=== PATIENT | female | born 1990 | race Caucasian/White ===

== ENCOUNTER 2016-10-09 15:11 | Emergency (ER) | payer OTHER ==
[~2016-10-09] VITALS: Wt 65.0 kg
[~2016-10-09 15:11] MED LIST: FERR-55 PO; PREN-39 PO
[2016-10-09 16:48] LABS: URINE BLOOD (Dip) POC 1+ (NEGATIVE)
[2016-10-09] MEDS ORDERED: NAPR-688 PO (17:51)
[2016-10-09] MEDS ORDERED: PHEN-537 PO (17:51)
[2016-10-09] MEDS ORDERED: NITR-58 PO (17:51)
[2016-10-09] MEDS ORDERED: CIPR500T4 PO (17:51)
--- NOTE | 2016-10-09 18:00 | ERD ---
ER Documentation Chief Complaint Date/Time DATE: 10/09/16 TIME: 17:54 Chief Complaint DYSURIA SINCE SUNDAY HPI This 26-year-old female presents to the ER with burning on urination for the last 4 days. More recently she started having pain in her right flank. She denies fevers and chills. She does not feel lightheaded. Flank pain is a dull ache. She has had urinary tract infections in the past. Also has mild suprapubic pain. ROS All systems reviewed and are negative except as per history of present illness. Medications Home Meds Active Scripts Naproxen* (Naproxen*) 500 Mg Tablet, 500 MG PO BID Y for PAIN, #20 TAB Prov:LISA DE OLIVEIRA DO 10/09/16 Phenazopyridine Hcl* (Pyridium*) 100 Mg Tab, 100 MG PO TID Y for URINARY PAIN, # 8 TAB Prov:LISA DE OLIVEIRA DO 10/09/16 Nitrofurantoin Monohyd Macrocr* (Macrobid*) 100 Mg Capsr, 100 MG PO HS for 10 Days, CAP Prov:LISA DE OLIVEIRA DO 10/09/16 Ciprofloxacin Hcl* (Ciprofloxacin Hcl*) 500 Mg Tablet, 500 MG PO BID for 10 Days , TAB Prov:LISA DE OLIVEIRA DO 10/09/16 Reported Medications Ferrous Sulfate* (Ferrous Sulfate*) 325 Mg Tablet, 325 MG PO DAILY 07/30/13 Vits W-Ca,Fe,Fa(<1MG) ( Vitamins) 1 Tab Tablet, 1 TAB PO DAILY 07/30/13 Allergies Allergies: Coded Allergies: No Known Allergy (Unverified , 04/16/15) PMhx/Soc Medical and Surgical Hx: pt denies Medical Hx, pt denies Surgical Hx History of Surgery: No Anesthesia Reaction: No Hx Neurological Disorder: No Hx Respiratory Disorders: No Hx Cardiac Disorders: No Hx Psychiatric Problems: No Hx Miscellaneous Medical Probl: No Hx Alcohol Use: No Hx Substance Use: No Hx Tobacco Use: No Smoking Status: Never smoker Physical Exam Vitals Vital Signs Date Time Temp Pulse Resp B/P Pulse Ox O2 Delivery O2 Flow Rate FiO2 10/09/16 15:14 98.2 71 18 129/71 99 Physical Exam Const: [] Mild distress, Neck: Full range of motion..~ No meningismus. Resp: Clear to auscultation bilaterally Abd: Soft, non tender, non distended. Normal bowel sounds Skin: No petechiae or rashes Back: No midline or flank tenderness Results 24 hrs Laboratory Tests Test 10/09/16 16:51 Bedside Urine pH (LAB) 6.0 Bedside Urine Protein (LAB) Negative Bedside Urine Glucose (UA) Negative Bedside Urine Ketones (LAB) Negative Bedside Urine Blood 1+ Bedside Urine Nitrite (LAB) Positive Bedside Urine Leukocyte Esterase (L 1+ Procedures/MDM Pyelonephritis with stable vital signs, no nausea or vomiting and does not feel lightheaded. I believe she is appropriate for outpatient management of pyelonephritis. Discharging with Cipro and Macrobid for 10 days as well as Pyridium and naproxen. Departure Diagnosis: Primary Impression: Pyelonephritis Condition: Stable Patient Instructions: Pyelonephritis, Female (Adult) Additional Instructions: Llame al doctor MAANA y jaelyn honey GLENIS PARA DENTRO DE 2-3 MABRY.Dgale a la secretaria que nosotros le instruimos hacer esta glenis.Avise o llame si terrazas condicin se empeora antes de la glenis. Regresa aqui si peor o no mejor. LISA DE OLIVEIRA DO Oct 09, 2016 18:00
== END 2016-10-09 18:08 | disposition home or self-care (01) ==
LOC: FTE 15:11
DX: N12 Tubulo-interstitial nephritis, not specified as acute or chronic (principal)
CPT/HCPCS: 81003; 99284

== ENCOUNTER 2016-10-26 16:50 | Emergency (ER) | payer OTHER ==
[~2016-10-26] VITALS: Ht 152.4 cm; Wt 66.5 kg
[~2016-10-26 16:50] MED LIST changes: +CIPR500T4 PO; +NAPR-688 PO; +NITR-58 PO; +PHEN-537 PO
[2016-10-26 17:04] VITALS: Ht 152.4 cm; Wt 66.5 kg
--- NOTE | 2016-10-26 18:08 | RADRPT ---
PROCEDURE: XR, Chest. CLINICAL INDICATION: Cough. TECHNIQUE: AP chest COMPARISON: None available. FINDINGS: There is no acute infiltrate in the lungs. No pleural effusion. The heart is not enlarged. IMPRESSION: 1. Unremarkable chest x-ray. RPTAT: GG .Musa Perez MD, MD Date Time Electronically viewed and signed by .Musa Perez MD, MD on 10/26/2016 18:08 .Y/
[2016-10-26] MEDS ORDERED: AZIT250T94 PO (18:12)
[2016-10-26] MEDS ORDERED: ACET500C5 PO (18:12)
[2016-10-26] MEDS ORDERED: ALBU8.5H3 INH (18:13)
[2016-10-26 18:34] VITALS: BP 143/67; PULSE 72; RESP 20; TEMP 98.8
--- NOTE | 2016-10-26 19:07 | ERD ---
ER Documentation Chief Complaint Date/Time DATE: 10/26/16 TIME: 19:04 Chief Complaint Complains of a cough Hx of Bronchitis HPI Patient is a 26-year-old female who presents to the ED with cough and congestion 4 days. Denies fever or chills. Denies headache or dizziness. Denies abdominal pain, nausea, vomiting or diarrhea. Denies sick contacts. Denies night sweats or hemoptysis. Denies seizures or rashes. Denies leg pain or leg swelling. Denies chest pain or shortness of breath. Patient has not taken any medications for her symptoms besides drinking lots of tea ROS All systems reviewed and are negative except as per history of present illness. Medications Home Meds Active Scripts Albuterol Sulfate* (Proair HFA*) 8.5 Gm Hfa.aer.ad, 2 PUFF INH Q4, #1 INHALER Prov:SURI BERMUDEZ PA-C 10/26/16 Acetaminophen* (Tylophen*) 500 Mg Capsule, 1 CAP PO Q6H Y for PAIN AND OR ELEVATED TEMP, #20 CAP Prov:SURI BERMUDEZ PA-C 10/26/16 Azithromycin* (Zithromax*) 250 Mg Tablet, 250 MG PO .ZPACK DIRECTED, #6 TAB TAKE 500 MG (2 TABS) THE FIRST DAY THEN 250 MG (1 TAB) DAYS 2-5 Prov:SURI BERMUDEZ PA-C 10/26/16 Naproxen* (Naproxen*) 500 Mg Tablet, 500 MG PO BID Y for PAIN, #20 TAB Prov:LISA DE OLIVEIRA DO 10/09/16 Phenazopyridine Hcl* (Pyridium*) 100 Mg Tab, 100 MG PO TID Y for URINARY PAIN, # 8 TAB Prov:LISA DE OLIVEIRA DO 10/09/16 Nitrofurantoin Monohyd Macrocr* (Macrobid*) 100 Mg Capsr, 100 MG PO HS for 10 Days, CAP Prov:LISA DE OLIVEIRA DO 10/09/16 Ciprofloxacin Hcl* (Ciprofloxacin Hcl*) 500 Mg Tablet, 500 MG PO BID for 10 Days , TAB Prov:LISA DE OLIVEIRA DO 10/09/16 Reported Medications Ferrous Sulfate* (Ferrous Sulfate*) 325 Mg Tablet, 325 MG PO DAILY 07/30/13 Vits W-Ca,Fe,Fa(<1MG) ( Vitamins) 1 Tab Tablet, 1 TAB PO DAILY 07/30/13 Allergies Allergies: Coded Allergies: No Known Allergy (Unverified , 04/16/15) PMhx/Soc Medical and Surgical Hx: pt denies Medical Hx History of Surgery: Yes ("TO NOT HAVE KIDS") Anesthesia Reaction: No Hx Neurological Disorder: No Hx Respiratory Disorders: No Hx Cardiac Disorders: No Hx Psychiatric Problems: No Hx Miscellaneous Medical Probl: No Hx Alcohol Use: No Hx Substance Use: No Hx Tobacco Use: No Smoking Status: Never smoker Physical Exam Vitals Vital Signs Date Time Temp Pulse Resp B/P Pulse Ox O2 Delivery O2 Flow Rate FiO2 10/26/16 18:34 98.8 72 20 143/67 99 Room Air 10/26/16 17:04 98.7 81 20 157/67 98 Physical Exam GENERAL: Well-developed, well-nourished female. Appears in no acute distress. HEAD: Normocephalic, atraumatic. EYES: Pupils are equally reactive bilaterally. EOMs grossly intact. No conjunctival erythema. ENT: Moist mucous membranes. No uvula deviation. No kissing tonsils. No exudates. Bilateral TMs clear NECK: Supple. No lymphadenopathy or thyromegaly. No meningismus. negative kernig. negative brudinski. LUNG: Clear to auscultation bilaterally. No rhonchi, wheezing, rales or coarse breath sounds. HEART: Regular rate and rhythm. No murmurs, rubs or gallops. Extremities: Equal pulses bilaterally. No peripheral clubbing, cyanosis or edema. No unilateral leg swelling. NEUROLOGIC: Alert and oriented. Moving all four extremities. 5/5 strength in all extremities. Normal speech. Steady gait. SKIN: Normal color. Warm and dry. No rashes or lesions. Capillary refill < 2 seconds Procedures/MDM ER COURSE: I kept the patient and/or family informed of laboratory and diagnostic imaging results throughout the emergency room course. IMAGING STUDIES [place] [id number] Radiology Main Line: [phone] DIAGNOSTIC IMAGING REPORT Patient: ANTONINO CLARK : 1990 Age: 26 Sex: F MR #: [id number] DOS: 10/26/16 0000 Ordering MD: SURI BERMUDEZ PA-C Location: [facility] Room/Bed: PROCEDURE: XR, Chest. CLINICAL INDICATION: Cough. TECHNIQUE: AP chest COMPARISON: None available. FINDINGS: There is no acute infiltrate in the lungs. No pleural effusion. The heart is not enlarged. IMPRESSION: 1. Unremarkable chest x-ray. RPTAT: GG .Musa Perez MD, Date Time Electronically viewed and signed by .Musa Perez MD, MD on 10/26/2016 18:08 .Y/ CC: SURI BERMUDEZ PA-C MEDICAL DECISION MAKING: This is a 26-year-old who female presents with cough and congestion 4 days. Vital signs were reviewed. Patient is afebrile. Patient is not hypoxic. X-rays of by radiologist unremarkable. Patient likely has bronchitis. Low suspicion for pneumonia, PE, pneumothorax, ACS, epiglottitis, obstruction, TB, pertussis, meningitis, sepsis. DISCHARGE: At this time, patient is stable for discharge and outpatient management with no new complaints during the ER course. Patient was sent home with azithromycin and Tylenol and albuterol. Patient will be discharged home with instructions to recheck for new or worsening symptoms such as fever, nausea, weakness, LOC and to follow up with primary care in the next 1-2 days. Patient was advised to return to the ER for any new or worsening symptoms. Plan was discussed and patient and/or family understands and agrees. Home instructions were given. Departure Diagnosis: Primary Impression: Cough Condition: Stable Patient Instructions: Cough, Chronic, Uncertain Cause, (Adult) Additional Instructions: Llame al doctor MAANA y jaelyn honey GLENIS PARA DENTRO DE 1-2 MABRY.Dgale a la secretaria que nosotros le instruimos hacer esta glenis.Avise o llame si terrazas condicin se empeora antes de la glenis. Regresa aqui si peor o no mejor. SURI BERMUDEZ PA-C Oct 26, 2016 19:07
== END 2016-10-26 18:35 | disposition home or self-care (01) ==
LOC: FTE 16:50
DX: R05 Cough (principal)
CPT/HCPCS: 71010; Z7502

== ENCOUNTER 2018-01-26 09:37 | Emergency (ER) | END 2018-01-26 10:49 | disposition home or self-care (01) ==